=== PATIENT | female | born 1975 | race Caucasian/White ===

== ENCOUNTER 2018-09-23 07:43 | Emergency (ER) | payer OTHER ==
[2018-09-23] MEDS: morphine 4 MG/ML VIAL IV (08:04)
[2018-09-23] MEDS: SOD CHLORIDE 0.9% 1,000 ML IV (08:05)
[2018-09-23] MEDS: ONDANSETRON 4 MG INJ IV (08:05)
[2018-09-23 08:09] LABS: ADD MAN DIFF? NO
[2018-09-23 08:13] LABS: WHITE BLOOD COUNT 14.4 10^3/ul (4.8-10.8)
[2018-09-23 08:13] LABS: ABNORMAL IP MESSAGE 1; BASOPHIL # 0.1 10^3/ul (0.0-0.1); BASOPHILS % 0.5 % (0.0-2.0); EOSINOPHILS # 0.5 10^3/ul (0.0-0.5); EOSINOPHILS % 3.7 % (0.0-7.0); HEMATOCRIT 31.8 % (37.0-47.0); HEMOGLOBIN 8.4 g/dl (12.0-16.0); LYMPHOCYTES # 4.2 10^3/ul (0.8-2.9); LYMPHOCYTES % 28.9 % (15.0-51.0); MEAN CORPUSCULAR HEMOGLOBIN 18.1 pg (29.0-33.0); MEAN CORPUSCULAR HGB CONC 26.4 g/dl (32.0-37.0); MEAN CORPUSCULAR VOLUME 68.5 fl (82.0-101.0); MEAN PLATELET VOLUME 9.4 fl (7.4-10.4); MONOCYTE # 1.2 10^3/ul (0.3-0.9); MONOCYTES % 8.6 % (0.0-11.0); NEUTROPHIL # 8.4 10^3/ul (1.6-7.5); NEUTROPHILS % 57.9 % (39.0-77.0); PLATELET COUNT 482 10^3/UL (140-415); RED BLOOD COUNT 4.64 10^6/ul (4.20-5.40); RED CELL DISTRIBUTION WIDTH 17.5 % (11.5-14.5)
[2018-09-23 08:14] LABS: POSITIVE DIFF @See below
[2018-09-23] MEDS: morphine 2 MG INJ IV (08:18)
[2018-09-23 08:30] LABS: ALANINE AMINOTRANSFERASE 18 IU/L (13-69); ALBUMIN 4.8 g/dl (3.3-4.9); ALBUMIN/GLOBULIN RATIO 1.92; ALKALINE PHOSPHATASE 73 IU/L (42-121); ANION GAP 18 (5-13); ASPARTATE AMINO TRANSFERASE 32 IU/L (15-46); BILIRUBIN,INDIRECT 0.7 mg/dl (0-1.1); BILIRUBIN,TOTAL 0.7 mg/dl (0.2-1.3); BLOOD UREA NITROGEN 14 mg/dl (7-20); CARBON DIOXIDE 14 mmol/L (21-31); CHLORIDE 108 mmol/L (97-110); CREATININE 1.17 mg/dl (0.44-1.00); Estimated GFR 51 mL/min (>60); GLUCOSE 191 mg/dl (70-220); POTASSIUM 3.6 mmol/L (3.5-5.1); SODIUM 140 mmol/L (135-144); TOTAL PROTEIN 7.3 g/dl (6.1-8.1)
[2018-09-23 08:32] LABS: INR 0.93; PROTIME 12.6 Sec (11.9-14.9)
[2018-09-23 08:33] LABS: PARTIAL THROMBOPLASTIN TIME 22.6 Sec (23.0-35.0)
[2018-09-23] MEDS: SODIUM CHLORIDE 0.9% 1L BAG IV* (09:09)
[2018-09-23] MEDS: SOD CHLORIDE 0.9% 100 ML (09:42)
[2018-09-23] MEDS: IOHEXOL 300MG/ML 150 ML BTL (09:42)
== END 2018-09-23 12:02 | disposition home or self-care (01) ==
LOC: E/R 07:43
DX: D64.9 Anemia, unspecified (principal); D25.9 Leiomyoma of uterus, unspecified; R10.2 Pelvic and perineal pain; R40.2142 Coma scale, eyes open, spontaneous, at arrival to emergency department; R40.2252 Coma scale, best verbal response, oriented, at arrival to emergency department; R40.2362 Coma scale, best motor response, obeys commands, at arrival to emergency department
CPT/HCPCS: 36415; 70450; 74177; 76856; 80053; 83605; 84703; 85025; 85610; 85730; 86850; 86900; 86901; 87040-91; 96374; 96375; 99285-25